=== PATIENT | female | born 2000 | race Caucasian/White ===

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

== ENCOUNTER 2019-02-16 16:25 | Emergency (ER) | payer OTHER, SELFPAY ==
[2018-11-09 14:49] VITALS: BMI 23.0
[2019-02-16 16:26] VITALS: BP 119/70; PULSE 96; RESP 18; TEMP 37.3; O2SAT 96; BMI 24.8
--- NOTE | 2019-02-16 16:39 | EKG12_ITS ---
Test Reason : OD Blood Pressure : / mmHG Vent. Rate : 096 BPM Atrial Rate : 096 BPM P-R Int : 134 ms QRS Dur : 074 ms QT Int : 352 ms P-R-T Axes : 065 053 058 degrees QTc Int : 444 ms Normal sinus rhythm Normal ECG Confirmed by PETRA OLEARY, JUSTICE ([id number]), make up editor CRISTHIAN COBURN ([id number] on 02/18/2019 11:44:09 AM Referred By: MARY Confirmed By:JUSTICE LAMBERT MD
--- NOTE | 2019-02-16 16:39 | RAD_ITS ---
STUDY: X-RAY CHEST REASON FOR EXAM: Female, 18 years old. Took 15 migraine pills TECHNIQUE: Single AP portable view of the chest. COMPARISON: June 25, 2017 FINDINGS: The lungs are clear and expanded. There is no demonstrated pleural abnormality. Normal size heart. Normal mediastinum and katie. Normal visualized pulmonary arteries. Normal visualized aortic arch and descending thoracic aorta. Normal visualized thoracic spine. Normal visualized ribs, clavicles, and shoulders. There is no demonstrated abnormality of the visualized soft tissue structures of the upper abdomen. RAD/Chest 1 View (Portable) IMPRESSION: Normal x-ray examination of the chest. Electronically Signed: Tien Clay DO at 17:29 EST Tel , Service support ,
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
[2019-02-16] MEDS: 0.9% Normal Saline 1,000 ML 1000 ML IV (16:43)
[2019-02-16 16:53] LABS: Bacteria 0 SEEN /hpf (None Seen); Mucous, Urine 0 SEEN /hpf (<or=2+); Red Blood Cells-Urine 0 SEEN /hpf (0-5); White Blood Cells 0 SEEN /hpf (0-5)
[2019-02-16 16:54] LABS: Color, Urine Straw (Yellow); Glucose, Dipstick 1000 mg/dl (Normal); Ketone-Dipstick 15 mg/dl (Negative); Leukocyte Esterase-Dipstick Negative /ul (Negative); Nitrite-Dipstick Negative (Negative); Occult Blood-Urine Negative /ul (Negative); Protein-Dipstick Negative (Negative); Urine Bilirubin Dipstick Negative (Negative); Urine Clarity Clear (Clear); Urine Urobilinogen Normal (Normal)
[2019-02-16 16:57] LABS: Internal QC Validated? YES +Cl - CLEAR BKGD; Pregnancy, Urine Negative Negative
[2019-02-16 17:01] LABS: Squamous Epithelial Cells - UA 0-5 SEEN /hpf (5-10)
[2019-02-16 17:15] LABS: Amphetamine Urine VISTA NEGATIVE (<1000 ng/mL); Barbiturate Urine VISTA NEGATIVE (< 200 ng/mL); Benzodiazepine Urine VISTA NEGATIVE (< 200 ng/mL); Cocaine Urine VISTA NEGATIVE (< 300 ng/mL); Ecstacy Urine VISTA NEGATIVE (< 500 ng/mL); Methadone Urine VISTA NEGATIVE (< 300 ng/mL); PCP Urine VISTA NEGATIVE (< 25 ng/mL); THC Urine VISTA NEGATIVE (< 50 ng/mL); Vista UDS pH Range 6
[2019-02-16 17:16] LABS: Absolute Lymphocyte Count 1.81 X10^3/uL (0.83-4.51); Absolute Neutrophil Count 4.6 X10^3/uL (2.0-7.7); Basophil# 0.02 X10^3/uL; Basophil% 0.3 % (0-1); Eosinophil# 0.06 X10^3/uL; Eosinophils% 0.9 % (0-5); Hematocrit 42.1 % (37-47); Hemoglobin 13.5 g/dL (12.0-15.0); Lymphocyte # 1.81 X10^3/ul (4.0); Lymphocyte % 26.4 % (19-41); Mean Corp Hgb Conc 32.1 g/dL (32-36); Mean Corpuscular Hgb 28.4 pg (27.0-32.0); Mean Corpuscular Volume 88.4 fL (81-99); Monocyte# 0.39 X10^3/uL; Monocyte% 5.7 % (0-10); NRBC Flagged by Analyzer 0 % (0-5); Neutrophil # 4.56 X10^3/uL (2.7-7.7); Neutrophil % 66.6 % (47-70); Platelet Count 308 K/mm3 (150-450); RBC Distribution Width CV 11.2 % (11.6-14.6); RBC Distribution Width SD 36.2 fl (35.1-43.9); Red Blood Count 4.76 M/mm3 (4.2-5.4); White Blood Count 6.9 K/mm3 (4.4-11.0)
[2019-02-16 17:26] LABS: Acetaminophen (Tylenol) Level 38.4 ug/mL (10.0-30.0); Salicylate 9.9 mg/dL (2.8-20.0)
[2019-02-16 17:30] VITALS: BP 120/75; PULSE 90; RESP 16; O2SAT 96
[2019-02-16 17:50] LABS: ALB/GLOB Ratio 0.9 RATIO (0.9-2.4); AST(SGOT) 11 U/L (15-37); Alanine Aminotransfer ALT/SGPT 17 U/L (13-56); Albumin, Serum 3.6 g/dL (3.2-5.0); Alkaline Phosphatase 123 U/L (45-117); Anion Gap 13 (5-15); BUN 12 mg/dL (7-18); BUN/Creat Ratio 9.8 RATIO (10-20); Calcium,Total 9.3 mg/dL (8.5-10.1); Chloride 92 mmol/L (98-107); Creatinine, Serum 1.22 mg/dL (0.55-1.02); EST Glomerular Filtration Rate 60 mL/min (>60); Est Glom Filt Rate - Afr Amer 72 mL/min (>60); Estimated Creatinine Clearance 61.35 ml/min; Globulin 4.1 g/dL (2.2-4.2); Glucose 991 mg/dL (74-106); Potassium 4.6 mmol/L (3.5-5.1); Protein, Total 7.7 g/dL (6.4-8.2); Sodium Level 127 mmol/L (136-145)
[2019-02-16] MEDS: Ondansetron 4 MG/2 ML Vial IV (18:00)
[2019-02-16 18:06] LABS: Blood Gas Specimen Type VEN; O2 Delivery Device Room Air; SITE OTHER; Time Given 1753; VBG BASE EXCESS -5 mmol/L (-1.0-3.5); VBG Bicarbonate 19 mmol/L (22-26); VBG Oxygen Content 20 mmol/L (23-33); VBG PO2 69 mmHg (25-40); VBG SO2 94 % (50-70); VBG pCO2 29.9 mmHg (41-51); VBG pH 7.42 (7.32-7.42)
[2019-02-16] MEDS: 0.9% Normal Saline 1,000 ML 999 ML IV (18:46)
[2019-02-16 19:07] VITALS: RESP 18
[2019-02-16 19:40] VITALS: BP 107/65; PULSE 86; RESP 15; O2SAT 97
[2019-02-16 19:46] LABS: Bedside Glucose 432 mg/dL (70-110)
[2019-02-16 20:42] VITALS: BP 110/71; PULSE 911; RESP 18; O2SAT 96
[2019-02-16 20:51] LABS: Bedside Glucose 275 mg/dL (70-110)
[2019-02-16 21:35] VITALS: BP 109/60; PULSE 90; RESP 15; O2SAT 96
[2019-02-16 21:36] LABS: Bedside Glucose 191 mg/dL (70-110)
== END 2019-02-16 21:37 | disposition home or self-care (01) ==
PROVIDERS: Emergency Provider Emergency Medicine; Family Provider Pediatrics; PCP Pediatrics
DX: E10.65 Type 1 diabetes mellitus with hyperglycemia (principal); T39.1X1A Poisoning by 4-Aminophenol derivatives, accidental (unintentional), initial encounter; R07.9 Chest pain, unspecified; Y92.9 Unspecified place or not applicable; Z91.14 Patient's other noncompliance with medication regimen; F17.200 Nicotine dependence, unspecified, uncomplicated; Z79.4 Long term (current) use of insulin
CPT/HCPCS: 71045; 80053; 80307; 80329; 81001; 81025; 82009; 82803; 82962; 84484; 85025; 93005; 96361; 96365; 96366; 96375; 99285; J7030; A4216; G0480; J2405

== ENCOUNTER → 2019-04-11 13:30 | Outpatient (CLI) | payer OTHER, SELFPAY ==
[2019-04-11 13:27] VITALS: BMI 24.8
== END ==
PROVIDERS: Family Provider Pediatrics; PCP Pediatrics; Referring Provider Physician Assistant Surgical; Visit Provider Physician Assistant Surgical
DX: J02.9 Acute pharyngitis, unspecified (principal)
CPT/HCPCS: 87070; 87077

== ENCOUNTER → 2019-05-27 | Outpatient (CLI) | payer OTHER, SELFPAY ==
[2019-05-26 15:57] VITALS: BMI 24.8
[2019-05-27 14:50] LABS: Bacteria 0 SEEN /hpf (None Seen); Mucous, Urine 0 SEEN /hpf (<or=2+); Red Blood Cells-Urine 0 SEEN /hpf (0-5); White Blood Cells 0 SEEN /hpf (0-5)
[2019-05-27 15:06] LABS: Color, Urine Straw (Yellow); Glucose, Dipstick 1000 mg/dl (Normal); Ketone-Dipstick Negative (Negative); Leukocyte Esterase-Dipstick Negative /ul (Negative); Nitrite-Dipstick Negative (Negative); Occult Blood-Urine Negative /ul (Negative); Protein-Dipstick Negative (Negative); Urine Bilirubin Dipstick Negative (Negative); Urine Clarity Clear (Clear); Urine Urobilinogen Normal (Normal)
[2019-05-27 15:21] LABS: Squamous Epithelial Cells - UA 0-5 SEEN /hpf (5-10)
== END | disposition home or self-care (01) ==
LOC: LABSPEC 14:22
PROVIDERS: PCP Pediatrics; Referring Provider Physician Assistant; Visit Provider Physician Assistant
DX: R35.0 Frequency of micturition (principal); R81 Glycosuria
CPT/HCPCS: 81001; 87086; 87088

== ENCOUNTER → 2019-07-03 15:38 | Outpatient (CLI) | payer OTHER, SELFPAY ==
[2019-07-03 15:17] VITALS: BMI 24.8
[2019-07-03 19:34] LABS: Chlamydia Trachomatis by PCR POSITIVE (Negative); Neisserai gonorrhoeae by PCR Negative (Negative); Probe Check PASS; Sample Adequacy Control PASS; Specimen Processing Control PASS
== END ==
PROVIDERS: PCP Pediatrics; Referring Provider Nurse Practitioner Women's Health; Visit Provider Nurse Practitioner Women's Health
DX: Z11.3 Encounter for screening for infections with a predominantly sexual mode of transmission (principal)
CPT/HCPCS: 87491; 87591

== ENCOUNTER 2019-11-17 14:26 | Emergency (ER) | payer OTHER, SELFPAY ==
[2019-07-03 15:17] VITALS: BMI 24.8
[2019-11-17 14:30] VITALS: BP 127/86; PULSE 105; RESP 18; TEMP 37.2; O2SAT 97; BMI 22.4
[2019-11-17] MEDS: Ibuprofen 600 MG Tablet PO (14:46)
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
== END 2019-11-17 15:44 | disposition home or self-care (01) ==
PROVIDERS: Emergency Provider Emergency Medicine; PCP Pediatrics
DX: S16.1XXA Strain of muscle, fascia and tendon at neck level, initial encounter (principal); Y04.2XXA Assault by strike against or bumped into by another person, initial encounter; Y93.9 Activity, unspecified; Y92.9 Unspecified place or not applicable; Y99.9 Unspecified external cause status; E10.9 Type 1 diabetes mellitus without complications; Z72.0 Tobacco use; Z79.4 Long term (current) use of insulin
CPT/HCPCS: 70110; 72040; 99284

== ENCOUNTER 2019-11-18 20:47 | Emergency (ER) | payer OTHER, SELFPAY ==
[2019-11-17 14:30] VITALS: BMI 22.4
[2019-11-18 20:48] VITALS: BP 114/72; PULSE 99; RESP 15; TEMP 36.9; O2SAT 97; BMI 22.1
--- NOTE | 2019-11-18 21:08 | EKG12_ITS ---
Test Reason : DYSRHYTHMIA Blood Pressure : / mmHG Vent. Rate : 095 BPM Atrial Rate : 095 BPM P-R Int : 112 ms QRS Dur : 076 ms QT Int : 330 ms P-R-T Axes : 010 046 029 degrees QTc Int : 414 ms Normal sinus rhythm Normal ECG Confirmed by RODRIGO PULIDO ([id number]), telegraph editor JULIANN DAMON ([id number]) on 11/24/2019 9:49:55 AM Referred By: KSENIA Confirmed By:RODRIGO PULIDO
[2019-11-18 21:10] VITALS: BP 111/86; PULSE 106; RESP 18; O2SAT 99
[2019-11-18 21:46] LABS: Bedside Glucose 173 mg/dL (70-110)
--- NOTE | 2019-11-18 22:10 | RAD_ITS ---
STUDY: X-RAY CHEST REASON FOR EXAM: Female, 19 years old. Syncopal episode. History of type 1 diabetes. TECHNIQUE: Single frontal view of the chest. COMPARISON: 02/16/2019. FINDINGS: There is no new focal consolidation. Normal size heart. Normal mediastinum and katie. Normal visualized pulmonary arteries. Normal visualized aortic arch and descending thoracic aorta. Normal visualized thoracic spine. Normal visualized ribs, clavicles, and shoulders. There is no demonstrated abnormality of the visualized soft tissue structures of the upper abdomen. RAD/Chest 1 View (Portable) IMPRESSION: No acute cardiopulmonary process. Electronically Signed: Jessenia Rodriguez MD at 22:42 EDT Tel , Service support ,
[2019-11-18] MEDS: Acetaminophen 500 MG Tablet 1000 MG PO (22:16)
[2019-11-18 22:17] VITALS: BP 95/68; PULSE 97; RESP 16; O2SAT 100
[2019-11-18] MEDS: 0.9% Normal Saline 1,000 ML 999 ML IV ×2 (22:17→23:09)
[2019-11-18 22:23] LABS: Absolute Lymphocyte Count 1.69 X10^3/uL (0.83-4.51); Absolute Neutrophil Count 6.8 X10^3/uL (2.0-7.7); Basophil# 0.05 X10^3/uL; Basophil% 0.5 % (0-1); Eosinophil# 0.11 X10^3/uL; Eosinophils% 1.2 % (0-5); Hemoglobin 12.9 g/dL (12.0-15.0); Lymphocyte # 1.69 X10^3/ul (4.0); Lymphocyte % 18.3 % (19-41); Mean Corp Hgb Conc 32.3 g/dL (32-36); Mean Corpuscular Hgb 28.7 pg (27.0-32.0); Mean Corpuscular Volume 88.9 fL (81-99); Mean Platelet Vol. 11.2 fl (6.2-12.0); Monocyte% 6.5 % (0-10); NRBC Flagged by Analyzer 0 % (0-5); Neutrophil # 6.77 X10^3/uL (2.7-7.7); Neutrophil % 73.3 % (47-70); Platelet Count 373 K/mm3 (150-450); RBC Distribution Width CV 11.9 % (11.6-14.6); RBC Distribution Width SD 38.6 fl (35.1-43.9); White Blood Count 9.2 K/mm3 (4.4-11.0)
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
[2019-11-18 22:37] LABS: Anion Gap 5 (5-15); BUN 18 mg/dL (7-18); BUN/Creat Ratio 19.8 RATIO (10-20); Calcium,Total 10.5 mg/dL (8.5-10.1); Chloride 104 mmol/L (98-107); Creatinine, Serum 0.91 mg/dL (0.55-1.02); EST Glomerular Filtration Rate 84 mL/min (>60); Est Glom Filt Rate - Afr Amer 101 mL/min (>60); Estimated Creatinine Clearance 81.58 ml/min; Glucose 167 mg/dL (74-106); Hemoglobin A1c 11.9 % (3.8-5.6); Magnesium 2.3 mg/dL (1.6-2.6); Phosphorus 3.2 mg/dL (2.5-4.9); Sodium Level 137 mmol/L (136-145)
--- NOTE | 2019-11-18 22:48 | ED.DCSUM_ITS ---
- ER Visit Summary Date of Service: 11/18/19 Chief Complaint: Near syncope History of Present Illness: The patient is a [address] Mosley. She reports that she has not felt well today. She felt nauseated and weak. Despite this she went to donate blood. While she was doing this she reports that she felt much worse and like she was going to pass out. They put cold rags on her head and she feels back to her baseline. Patient reports that she has had chest pain and shortness of breath all day. She describes a chest pain is tight and achy. Is 9-10 at worst and 6 out of 10 currently. Is increased with donating blood. Nothing makes this better. Patient also complains of a headache this 3-10 severity and generalized weakness. Physical Examination: Vitals: Stable. Afebrile. General: Well-nourished and well-developed. Head: Normocephalic atraumatic. Neck: Supple, no lymphadenopathy. No JVD. Nontender. Cardiovascular: Regular rate and rhythm. No murmurs. Respiratory: No respiratory distress. Clear to auscultation bilaterally. Mild tenderness palpation over the right costochondral margin that does reproduce her pain. Abdominal: Soft, nontender, nondistended, normal bowel sounds. No guarding, rebound, or peritoneal signs. Back: Nontender. Extremities: Nontender, no edema. Skin: Normal color, no rash. Neurologic: Alert and oriented ?3. Cranial nerves II through XII are intact. Normal strength and sensation. Mental status exam: Patient appears their stated age. Good posture and grooming. Good eye contact. Normal rate, volume, and latency of speech. Does admit to suicidal thoughts. She denies a plan. No homicidal ideation. No auditory or visual hallucinations. Flow of thought is logical. Insight and judgment is fair. Test Results: EKG is sinus at [address] changes. Normal intervals. No evidence of hokum or Brugada syndrome. Troponin is negative. Serum ketones are negative. test is negative. Chem-7 shows a glucose 167 calcium 10.5. CBC shows 7 neutrophils 73 lymphocytes of 18. Hemoglobin A1c is 11.9. Phosphorus and magnesium are normal. Chest x-ray is normal. Emergency Department Course and Treatment: Patient was given 2 L of normal saline. She was given Tylenol for her chest pain. She was discussed with case management and they have seen her. At this time she does not require hospitalization. However, they have arranged for outpatient follow-up for her. Treatment Plan: Had a prolonged discussion with the patient about her elevated hemoglobin A1c. 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 She does admit that she does not check her sugar regularly. Had a prolonged discussion with her about the importance of this. She will be discharged instructions to follow-up with her primary care physician in 1 to 2 days if not improving. Return to the emergency department for any worsening symptoms. Disposition: To home in improved and stable condition. Impression: 1. Vasovagal episode. 2. Insulin-dependent diabetes mellitus. 3. Depression. This note was generated with [employer] software. It may contain incorrect words, spelling, and punctuation that were not noted in review of the chart prior to signing ED Disposition - Plan for ED Patient: Instructions: ED Near Syncope Vasovagal Referrals: Amber Mosley MD [Primary Care Provider] - 1-2 Days if not improving
[2019-11-18 23:08] LABS: Internal QC Validated? YES +Cl - CLEAR BKGD; Pregnancy, Serum, hCG Quali. NEGATIVE Negative
[2019-11-19 00:38] VITALS: BP 95/59; PULSE 78; RESP 15; O2SAT 100
== END 2019-11-19 00:40 | disposition home or self-care (01) ==
LOC: ED 21:02
PROVIDERS: Emergency Provider Emergency Medicine; PCP Pediatrics
DX: R55 Syncope and collapse (principal); E10.9 Type 1 diabetes mellitus without complications; R45.851 Suicidal ideations; R19.7 Diarrhea, unspecified; R06.02 Shortness of breath; R07.9 Chest pain, unspecified; R53.1 Weakness; R51 Headache; F32.9 Major depressive disorder, single episode, unspecified; Z72.0 Tobacco use; Z79.4 Long term (current) use of insulin
CPT/HCPCS: 71045; 80048; 82009; 82962; 83036; 83735; 84100; 84484; 84703; 85025; 93005; 96360; 96361; 99284; J7030; A4216

== ENCOUNTER → 2020-05-07 | Outpatient (CLI) | payer OTHER, SELFPAY ==
[2020-01-17 08:34] VITALS: BMI 23.7
[2020-05-07 10:41] LABS: Bacteria 0 SEEN /hpf (None Seen); Mucous, Urine 0 SEEN /hpf (<or=2+); Red Blood Cells-Urine 0 SEEN /hpf (0-5); White Blood Cells 0 SEEN /hpf (0-5)
[2020-05-07 10:47] LABS: Color, Urine Yellow (Yellow); Glucose, Dipstick 1000 mg/dl (Normal); Ketone-Dipstick 15 mg/dl (Negative); Leukocyte Esterase-Dipstick Negative /ul (Negative); Nitrite-Dipstick Negative (Negative); Occult Blood-Urine 50 /ul (Negative); Protein-Dipstick Negative (Negative); Urine Bilirubin Dipstick Negative (Negative); Urine Clarity Clear (Clear); Urine Urobilinogen Normal (Normal); Urine pH 6.5 (5.0 - 8.0)
[2020-05-07 10:52] LABS: Squamous Epithelial Cells - UA 0-5 SEEN /hpf (5-10)
== END | disposition home or self-care (01) ==
LOC: LABSPEC 10:29
PROVIDERS: PCP Pediatrics; Referring Provider Physician Assistant Surgical; Visit Provider Physician Assistant Surgical
DX: M54.5 Low back pain (principal); R39.15 Urgency of urination
CPT/HCPCS: 81001; 87086; 87088

== ENCOUNTER 2020-06-04 02:24 | Emergency (ER) | payer OTHER, SELFPAY ==
[2020-01-17 08:34] VITALS: BMI 23.7
[2020-06-04 02:26] VITALS: BP 120/78; PULSE 95; RESP 18; TEMP 36.3; O2SAT 98; BMI 25.5
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
[2020-06-04] MEDS: Ondansetron 4 MG/2 ML Vial IV (02:38)
[2020-06-04] MEDS: 0.9% Normal Saline 1,000 ML 1000 ML IV (02:38)
[2020-06-04 02:44] LABS: Absolute Lymphocyte Count 1.76 X10^3/uL (0.83-4.51); Absolute Neutrophil Count 5.6 X10^3/uL (2.0-7.7); Basophil# 0.03 X10^3/uL; Basophil% 0.4 % (0-1); Hematocrit 39.6 % (37-47); Hemoglobin 12.7 g/dL (12.0-15.0); Lymphocyte # 1.76 X10^3/ul (4.0); Lymphocyte % 22.7 % (19-41); Mean Corp Hgb Conc 32.1 g/dL (32-36); Mean Corpuscular Hgb 28.6 pg (27.0-32.0); Mean Corpuscular Volume 89.2 fL (81-99); Mean Platelet Vol. 11.3 fl (6.2-12.0); Monocyte# 0.35 X10^3/uL; Monocyte% 4.5 % (0-10); NRBC Flagged by Analyzer 0 % (0-5); Neutrophil # 5.58 X10^3/uL (2.7-7.7); Neutrophil % 72.1 % (47-70); Platelet Count 295 K/mm3 (150-450); RBC Distribution Width CV 11.7 % (11.6-14.6); RBC Distribution Width SD 37.6 fl (35.1-43.9); Red Blood Count 4.44 M/mm3 (4.2-5.4); White Blood Count 7.7 K/mm3 (4.4-11.0)
[2020-06-04 02:53] LABS: Internal QC Validated? YES +Cl - CLEAR BKGD; Pregnancy, Serum, hCG Quali. NEGATIVE Negative
[2020-06-04 03:01] LABS: ALB/GLOB Ratio 0.9 RATIO (0.9-2.4); AST(SGOT) 13 U/L (15-37); Alanine Aminotransfer ALT/SGPT 19 U/L (13-56); Albumin, Serum 3.5 g/dL (3.2-5.0); Alkaline Phosphatase 72 U/L (45-117); Anion Gap 10 (5-15); BUN 9 mg/dL (7-18); BUN/Creat Ratio 11.6 RATIO (10-20); Calcium,Total 9.4 mg/dL (8.5-10.1); Chloride 105 mmol/L (98-107); Creatinine, Serum 0.78 mg/dL (0.55-1.02); EST Glomerular Filtration Rate 100 mL/min (>60); Est Glom Filt Rate - Afr Amer 121 mL/min (>60); Estimated Creatinine Clearance 94.38 ml/min; Globulin 3.9 g/dL (2.2-4.2); Glucose 285 mg/dL (74-106); Potassium 4.1 mmol/L (3.5-5.1); Protein, Total 7.4 g/dL (6.4-8.2); Sodium Level 139 mmol/L (136-145)
[2020-06-04 03:17] VITALS: BP 127/60; PULSE 90; RESP 16; O2SAT 93
--- NOTE | 2020-06-04 03:30 | ED.RN ---
Tolerated water PO and getting patient snack to see if can tolerate food.
[2020-06-04 03:32] LABS: Bacteria 0 SEEN /hpf (None Seen); Color, Urine Yellow (Yellow); Glucose, Dipstick 1000 mg/dl (Normal); Leukocyte Esterase-Dipstick Negative /ul (Negative); Mucous, Urine 0 SEEN /hpf (<or=2+); Nitrite-Dipstick Negative (Negative); Occult Blood-Urine Negative /ul (Negative); Protein-Dipstick Negative (Negative); Red Blood Cells-Urine 0 SEEN /hpf (0-5); Squamous Epithelial Cells - UA 0 SEEN /hpf (5-10); Urine Bilirubin Dipstick Negative (Negative); Urine Clarity Clear (Clear); Urine Urobilinogen Normal (Normal); White Blood Cells 0 SEEN /hpf (0-5)
[2020-06-04 03:35] LABS: Ketone-Dipstick 150 mg/dl (Negative)
[2020-06-04 03:36] VITALS: BP 124/78; PULSE 78; RESP 17; TEMP 36.6; O2SAT 98
[2020-06-04 05:47] VITALS: RESP 18
[2020-06-04 14:05] LABS: Bedside Glucose 262 mg/dL (70-110)
== END 2020-06-04 05:47 | disposition home or self-care (01) ==
PROVIDERS: Emergency Provider Emergency Medicine
DX: F10.129 Alcohol abuse with intoxication, unspecified (principal); E11.65 Type 2 diabetes mellitus with hyperglycemia; F17.200 Nicotine dependence, unspecified, uncomplicated; Z79.4 Long term (current) use of insulin; Z79.899 Other long term (current) drug therapy
CPT/HCPCS: 80053; 81001; 82077; 82962; 84703; 85025; 96361; 96374; 99285; J7030; A4216; J2405

== ENCOUNTER → 2020-08-10 17:11 | Outpatient (CLI) | payer OTHER, SELFPAY ==
[2020-08-10 18:22] LABS: AST(SGOT) 7 U/L (15-37); Alanine Aminotransfer ALT/SGPT 21 U/L (13-56); Anion Gap 8 (5-15); BUN 9 mg/dL (7-18); BUN/Creat Ratio 11.2 RATIO (10-20); Calcium,Total 9.2 mg/dL (8.5-10.1); Chloride 101 mmol/L (98-107); Cholesterol 213 mg/dL (200); EST Glomerular Filtration Rate 96 mL/min (>60); Est Glom Filt Rate - Afr Amer 116 mL/min (>60); Glucose 360 mg/dL (74-106); High Density Lipoprotein 77 mg/dL; Potassium 4.1 mmol/L (3.5-5.1); Sodium Level 136 mmol/L (136-145); Triglycerides 108 mg/dL; Very Low Density Lipoprotein 22 mg/dL (5-40)
== END ==
LOC: LAB 17:14
PROVIDERS: Referring Provider Internal Medicine Endocrinology, Diabetes & Metabolism; Visit Provider Internal Medicine Endocrinology, Diabetes & Metabolism
DX: E10.65 Type 1 diabetes mellitus with hyperglycemia (principal); E78.2 Mixed hyperlipidemia
CPT/HCPCS: 36415; 80048; 80061; 83036; 84450; 84460

== ENCOUNTER → 2020-10-27 | Outpatient (CLI) | payer OTHER, SELFPAY ==
[2020-10-27 14:33] VITALS: BMI 25.5
[2020-10-29 20:08] LABS: Chlamydia By Nucleic Acid AMP Negative (Negative)
[2020-10-29 20:21] LABS: Gonococcus By Nucleic Acid AMP Negative (Negative)
[2020-11-01 13:07] LABS: HPV Reflexed? NOT INDICATED
== END | disposition home or self-care (01) ==
PROVIDERS: Referring Provider Nurse Practitioner Women's Health; Visit Provider Nurse Practitioner Women's Health
DX: Z12.4 Encounter for screening for malignant neoplasm of cervix (principal); Z86.19 Personal history of other infectious and parasitic diseases
CPT/HCPCS: 87491; 87591; 88175; G0145

== ENCOUNTER → 2021-10-06 | Outpatient (CLI) | payer OTHER, SELFPAY ==
[2021-10-06 23:44] LABS: Bacteria 0 SEEN /hpf (None Seen); Mucous, Urine 0 SEEN /hpf (<or=2+); Red Blood Cells-Urine 0 SEEN /hpf (0-5); Squamous Epithelial Cells - UA 0 SEEN /hpf (5-10); White Blood Cells 0 SEEN /hpf (0-5)
[2021-10-07 00:46] LABS: Color, Urine Yellow (Yellow); Glucose, Dipstick 1000 mg/dl (Normal); Ketone-Dipstick 50 mg/dl (Negative); Leukocyte Esterase-Dipstick Negative /ul (Negative); Nitrite-Dipstick Negative (Negative); Occult Blood-Urine Negative /ul (Negative); Protein-Dipstick Negative (Negative); Specific Gravity, Urine 1.015 (1.002-1.030); Urine Bilirubin Dipstick Negative (Negative); Urine Clarity Clear (Clear); Urine Urobilinogen Normal (Normal)
[2021-10-07 06:24] LABS: Chlamydia Trachomatis by PCR Negative (Negative); Neisserai gonorrhoeae by PCR Negative (Negative); Probe Check PASS; Sample Adequacy Control PASS; Specimen Processing Control PASS
== END | disposition home or self-care (01) ==
PROVIDERS: Referring Provider Physician Assistant; Visit Provider Physician Assistant
DX: N89.8 Other specified noninflammatory disorders of vagina (principal)
CPT/HCPCS: 81001; 87086; 87088; 87491; 87591